=== PATIENT | male | born 1980 | race Caucasian/White ===

== ENCOUNTER 2023-10-27 19:51 | Emergency (ER) | payer BC, OTHER ==
[~2023-10-27] VITALS: Ht 175.3 cm; Wt 83.9 kg
[2023-10-27] MEDS ORDERED: LIDOCAINE 2% 20 ML MDV ONE (21:06)
[2023-10-27 22:16] VITALS: BP 132/73; O2SAT 98
== END 2023-10-27 23:28 | disposition home or self-care (01) ==
LOC: ER 19:54
DX: S01.112A Laceration without foreign body of left eyelid and periocular area, initial encounter (principal); W22.8XXA Striking against or struck by other objects, initial encounter; Y93.89 Activity, other specified; Y92.89 Other specified places as the place of occurrence of the external cause; Y99.8 Other external cause status
CPT/HCPCS: 12011; 99282; J3490

== ENCOUNTER 2024-01-10 06:43 | Emergency (ER) | payer BC, OTHER ==
[~2024-01-10] VITALS: Ht 170.2 cm; Wt 68.0 kg
[2024-01-10 07:04] VITALS: BP 136/65; TEMP 98.7; O2SAT 99
== END 2024-01-10 07:05 | disposition home or self-care (01) ==
LOC: ER 06:47
DX: S46.211A Strain of muscle, fascia and tendon of other parts of biceps, right arm, initial encounter (principal); Z60.2 Problems related to living alone; X50.0XXA Overexertion from strenuous movement or load, initial encounter; Y93.89 Activity, other specified; Y92.238 Other place in hospital as the place of occurrence of the external cause; Y99.0 Civilian activity done for income or pay